=== PATIENT | female | born 1960 | race Hispanic/Latino ===

== ENCOUNTER 2020-02-05 07:39 | Outpatient (CLI) | payer OTHER ==
--- NOTE | 2020-02-05 12:09 | ULT ---
RIGHT BREAST ULTRASOUND LMITED: HISTORY: The patient is referred from an outside institution for bilateral breast ultrasound to evaluate multi ple nodules in both breasts. Review of prior mammogram dated 12/04/2019 performed at [facility] demonstrates a poorly circumscribed mass in the upper right breast at 12 o'clock position. On ultrasound examination in the right breas t 12 o'clock position 2 cm from the nipple is a somewhat poorly marginated heterogeneous echogenic so lid mass measuring 0.9 x 1.2 x 1.5 cm in size. This corresponds to the abnormal area on prior mammog teri. In addition to this finding there were several areas of asymmetric echogenic breast tissue. A 0.3 x 0.3 x 0.7 cm diameter cyst noted in the 12 o'clock position of the right breast 3 cm from the nipple. IMPRESSION: BIRADS 4 - suspicious finding. Followup ultrasound-guided biopsy is recommended. This was discussed with the patient. She will be scheduled for an ultrasound-guided right breast biopsy in this regard . Right axilla was evaluated and showed no evidence for abnormal lymphadenopathy. CODE CR POS: OFF
--- NOTE | 2020-02-05 13:13 | ULT ---
LEFT BREAST ULTRASOUND: HISTORY: The patient presents for left breast ultrasound following an outside mammogram which demonstrated mul tiple circumscribed densities within the left breast. FINDINGS: Multiple circumscribed hypoechoic foci are noted within the left breast. The largest of these is see n at the 11 o'clock position approximately 3 cm from the nipple measuring 0.5 x 0.7 x 0.7 cm in size. This mass corresponds to a focal nodular area of asymmetry seen in the left breast dating back to 2 016. There were several other stable circumscribed masses seen in the left breast on prior mammogram s as well. IMPRESSION: Several circumscribed hypoechoic nodules within the left breast, the largest measuring 0.5 x 0.7 x 0. 7 cm at approximately 11 o'clock 3 cm from the nipple corresponding to a stable nodular area in the l eft breast on prior mammography dating back to at least 2016. Continued annual followup screening ma mmogram is recommended in regards to this nodule. Three-D mammography would be preferable. POS: OFF
== END 2020-02-05 07:40 | disposition home or self-care (01) ==
LOC: BICULT 07:39
PROVIDERS: ATTEND Nurse Practitioner Family
DX: R92.8 Other abnormal and inconclusive findings on diagnostic imaging of breast (principal); N63.20 Unspecified lump in the left breast, unspecified quadrant

== ENCOUNTER → 2020-04-02 | Day surgery (SDC) | payer OTHER ==
--- NOTE | 2020-04-02 13:49 | MMO ---
FILMS COMPARED: The present examination has been compared to prior imaging studies performed at [facility] on 10/31/2018 and 02/05/2020, and at [facility] on 12/04/2019. MAMMOGRAM FINDINGS: The breast is heterogeneously dense, which could obscure a lesion on mammography. There is a new biopsy clip seen in the right breast. This is at the 12 oclock position in the region of prior mammographic concern. IMPRESSION: NEW BIOPSY CLIP IN THE RIGHT BREAST IS CONFIRMED UTILIZING POST PROCEDURE MAMMOGRAM. Reported by: CATRACHITA HEARN MD Electonically Signed: [id number]
--- NOTE | 2020-04-02 14:09 | ULT ---
EXAM: Ultrasound-guided right breast biopsy PROVIDED CLINICAL HISTORY: Right breast mass COMPARISON: Right breast ultrasound 02/05/2020 and screening mammogram 12/04/2019 FINDINGS: Limited sonographic interrogation was performed of the right breast, with localization of the previou sly described mass. Informed consent was obtained from the patient. The skin overlying this region was prepped and draped in the usual sterile manner and the soft tissues anesthetized with 1% buffered lidocaine. A small skin incision was made. Continuous ultrasound guidance was utilized to obtain 4 core samples of the mass. Subsequently, continuous ultrasound guidance was utilized to place a biopsy site marker. [place] were withdrawn and hemostasis achieved. No immediate complications. IMPRESSION: Technically successful right breast biopsy. Please correlate with histology results to follow.
== END ==
LOC: BICULT 12:42
PROVIDERS: ATTEND Nurse Practitioner Family
PROC: 0H9T0ZX Drainage of Right Breast, Open Approach, Diagnostic (ICD-10-PCS; principal; 2020-04-02)
DX: D24.1 Benign neoplasm of right breast (principal)
CPT/HCPCS: 19083; 88305

== ENCOUNTER 2021-09-09 08:06 | Outpatient (CLI) | payer OTHER | END 2021-09-09 08:07 | disposition home or self-care (01) | LOC: BICCT 08:06 | PROVIDERS: ATTEND Nurse Practitioner Family | DX: Z87.891 Personal history of nicotine dependence (principal) | CPT/HCPCS: 71250 ==

== ENCOUNTER 2021-09-27 07:54 | Outpatient (CLI) | payer OTHER | END 2021-09-27 07:55 | disposition home or self-care (01) | LOC: BICMAMMO 07:54 | PROVIDERS: ATTEND Nurse Practitioner Family | DX: Z12.31 Encounter for screening mammogram for malignant neoplasm of breast (principal); Z98.890 Other specified postprocedural states | CPT/HCPCS: 77063; 77067 ==

== ENCOUNTER 2022-10-21 07:52 | Outpatient (CLI) | payer OTHER | END 2022-10-21 07:53 | disposition home or self-care (01) | LOC: BICMAMMO 07:52 | PROVIDERS: ATTEND Nurse Practitioner Family | DX: Z12.31 Encounter for screening mammogram for malignant neoplasm of breast (principal); Z91.89 Other specified personal risk factors, not elsewhere classified | CPT/HCPCS: 77063; 77067 ==